=== PATIENT | male | born 1970 | race African-American/Black ===

== ENCOUNTER 2018-05-11 11:23 | Emergency (ER) | payer OTHER ==
[2018-05-11] MEDS: NAPROXEN 500 MG TABLET PO (12:47)
== END 2018-05-11 13:49 | disposition home or self-care (01) ==
LOC: ER 11:23
DX: S46.912A Strain of unspecified muscle, fascia and tendon at shoulder and upper arm level, left arm, initial encounter (principal); X50.3XXA Overexertion from repetitive movements, initial encounter; Y93.89 Activity, other specified; Y99.8 Other external cause status; Y92.89 Other specified places as the place of occurrence of the external cause
CPT/HCPCS: 73030; 99284

== ENCOUNTER 2018-12-16 11:31 | Emergency (ER) | payer OTHER ==
[~2018-12-16] VITALS: Ht 180.3 cm; Wt 106.6 kg
[~2018-12-16 11:31] MED LIST: NAPR500T8 PO; ORPH100T PO
[2018-12-16 11:37] VITALS: BP 164/92
--- NOTE | 2018-12-16 12:47 | PHYS DOC ---
Past Medical History Past Medical History: No Pertinent History Past Surgical History: No Surgical History Alcohol Use: None Drug Use: None Adult General Chief Complaint Chief Complaint: LOWER EXT PAIN HPI HPI Patient is a 48 year old male with no significant medical history who presents to the ED today complaining of 7 out of 10 right lateral knee pain that began 3 days ago. Patient states the pain is worse on weight-bearing as well as flexion and extension of the knee. Patient denies any known injury. Patient describes the pain as sharp. Patient states he has been taking naproxen with no relief. Review of Systems Review of Systems Constitutional: Denies fever or chills [] Musculoskeletal: Reports right knee pain Integument: Denies rash or skin lesions [] Neurologic: Denies headache, focal weakness or sensory changes [] All other systems were reviewed and found to be within normal limits, except as documented in this note. Allergies Allergies Allergies Coded Allergies Type Severity Reaction Last Updated Verified No Known Drug Allergies 05/11/18 No Physical Exam Physical Exam Constitutional: Well developed, well nourished, no acute distress, non-toxic appearance. [] Skin: Warm, dry, no erythema, no rash. [] Back: No tenderness, no CVA tenderness. [] Extremities: Right knee with no obvious deformity. Slight tenderness on palpation of the right lateral knee. Slight limited range of motion on flexion of the knee. No laxity to the knee +2 right pedal pulse. Cap refill less than 2 seconds to the right lower extremity. Neurologic: Alert and oriented X 3, normal motor function, normal sensory function, no focal deficits noted. [] Psychologic: Affect normal, judgement normal, mood normal. [] Current Patient Data Vital Signs Vital Signs Date Time Temp Pulse Resp B/P (MAP) Pulse Ox O2 Delivery O2 Flow Rate FiO2 12/16/18 11:37 97.6 81 16 164/92 (116) 98 Room Air 97.6 EKG EKG [] Radiology/Procedures Radiology/Procedures []PROCEDURE: KNEE RIGHT 3V Examination: 3 views of the right knee HISTORY: History of right knee pain COMPARISON: None available FINDINGS: Mild joint space loss identified in the medial, lateral, patellofemoral compartments. Vertical calcific density projecting just lateral to the lateral femoral condyle could be soft tissue calcification or capsular calcification. IMPRESSION: Vertical calcific density identified lateral to the lateral femoral condyle probably capsular calcification or soft tissue calcification. Electronically signed by: Lionel Toro MD (12/16/2018 1:31 PM) [facility] DICTATED and SIGNED BY: LIONEL TORO MD DATE: 12/16/18 2085 Course & Med Decision Making Course & Med Decision Making Pertinent Labs and Imaging studies reviewed. (See chart for details) This is a 48-year-old male patient presenting to the ED today with right knee pain for 3 days, no known injury. Right knee xray noted for-vertical calcific density identified lateral to the lateral femoral condyle probably capsular calcification or soft tissue calcification no acute findings. Immobilizer applied to patient's right knee by the tire and lube technician, neurovascular exam is intact, ice elevation encouraged. Given prescription for meloxicam Medrol Dosepak. Dragon Disclaimer Dragon Disclaimer This electronic medical record was generated, in whole or in part, using a voice recognition dictation system. Departure Departure Impression: Primary Impression: Right medial knee pain Disposition: HOME, SELF-CARE Condition: STABLE Referrals: NO PCP (PCP) RYAN SPAIN MD follow up in 1 week Patient Instructions: Knee Pain, [id number] Additional Instructions: You evaluated in the emergency room for knee pain, you were noted calcification in the knee on xray, you need to follow up with an orthopedic doctor for this. Wear the immobilizer provided as tolerated. Ice and elevate the extremity. Take the prescribed medications as ordered. Scripts Meloxicam (MELOXICAM) 15 Mg Tablet 1 TAB PO DAILY, #30 TAB 0 Refills Prov: JUAN ANTONIO SERVIN APRN 12/16/18 Methylprednisolone (MEDROL) 4 Mg Tab.ds.pk 1 PKG PO UD, #1 PKG Prov: JUAN ANTONIO SERVIN DATA INTEGRITY ANALYST 12/16/18 JUAN ANTONIO SERVIN APRN Dec 16, 2018 12:47
--- NOTE | 2018-12-16 13:34 | RAD ---
Examination: 3 views of the right knee HISTORY: History of right knee pain COMPARISON: None available FINDINGS: Mild joint space loss identified in the medial, lateral, patellofemoral compartments. Vertical calcific density projecting just lateral to the lateral femoral condyle could be soft tissue calcification or capsular calcification. IMPRESSION: Vertical calcific density identified lateral to the lateral femoral condyle probably capsular calcification or soft tissue calcification. Electronically signed by: Lionel Toro MD (12/16/2018 1:31 PM) [place] [id number]
[2018-12-16] MEDS ORDERED: METH4TAB2 PO (13:46)
[2018-12-16] MEDS ORDERED: MELO15TA23 PO (13:46)
== END 2018-12-16 14:05 | disposition home or self-care (01) ==
LOC: ER 11:31
DX: M25.561 Pain in right knee (principal)
CPT/HCPCS: 29505; 73562; 99283